=== PATIENT | male | born 1970 | race Caucasian/White ===

== ENCOUNTER 2017-02-27 17:42 | Emergency (ER) | payer SELFPAY ==
[2017-02-27 17:42] VITALS: BMI 27.6
[2017-02-27 17:51] VITALS: BP 141/90; PULSE 102; RESP 20; TEMP 98.8; O2SAT 96
[2017-02-27] MEDS ORDERED: TDAP Vaccine 0.5 mL Syr IM ONE (19:10)
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
== END 2017-02-27 19:30 | disposition home or self-care (01) ==
LOC: H.ER 17:42
DX: S09.90XA Unspecified injury of head, initial encounter (principal); S01.81XA Laceration without foreign body of other part of head, initial encounter; Y04.0XXA Assault by unarmed brawl or fight, initial encounter; Y92.89 Other specified places as the place of occurrence of the external cause